=== PATIENT | female | born 1985 | race Caucasian/White ===

== ENCOUNTER 2017-11-16 20:03 | Emergency (ER) | payer SELFPAY ==
[~2017-11-16] VITALS: Ht 167.6 cm; Wt 62.3 kg
[2017-11-16 20:07] VITALS: BP 110/59; PULSE 89; RESP 16; TEMP 98; O2SAT 100
--- NOTE | 2017-11-16 20:36 | PD ---
HPI Chief Complaint: Cold / Flu Symptoms Time Seen by Provider: 20:28 Travel History International Travel<30 days: No Contact w/Intl Traveler<30days: No Traveled to known affect area: No History of Present Illness HPI 32-year-old female here for evaluation of subjective fevers, URI symptoms, sinus pressure, bilateral ear pain, and throat pain. Symptoms started yesterday. The patient has not actually checked her temperature at home, however feels as though she may have a fever. She took some [id number] cold and flu medicine without relief of symptoms. She took one ibuprofen about 7 hours ago. She smokes about 5 cigarettes a day. She denies illicit drug use. Sinus pressure is mainly frontal and is moderate. She did have a productive cough this afternoon, however she did not look at the sputum. [facility] Past Medical History ?: Not Social History Alcohol Use: No Tobacco Use: Yes Substance Use: No Allergies-Medications (Allergen,Severity, Reaction): Coded Allergies: No Known Allergies (Unverified , 11/16/17) Reported Meds & Prescriptions Reported Meds & Active Scripts Active No Active Prescriptions or Reported Medications Review of Systems Except as stated in HPI: all other systems reviewed are Neg Physical Exam Narrative GENERAL: Well-developed, well-nourished, comfortable, no apparent distress. SKIN: Focused skin assessment warm/dry. No rash. HEAD: Atraumatic. Normocephalic. EYES: Pupils equal and round. No scleral icterus. No injection or drainage. ENT: No nasal bleeding or discharge. Mucous membranes pink and moist. Pharynx with moderate erythema without exudates. Uvula is midline. Normal phonation. No drooling or stridor. Bilateral tympanic membranes and external auditory canals are normal. Moderate frontal and maxillary sinus tenderness. NECK: Trachea midline. No JVD. No nuchal rigidity. CARDIOVASCULAR: Regular rate and rhythm. RESPIRATORY: No accessory muscle use. Clear to auscultation. Breath sounds equal bilaterally. MUSCULOSKELETAL: No obvious deformities. No clubbing. No cyanosis. No edema. NEUROLOGICAL: Awake and alert. No obvious cranial nerve deficits. Motor grossly within normal limits. Normal speech. PSYCHIATRIC: Appropriate mood and affect; insight and judgment normal. Data Data Last Documented VS Vital Signs Date Time Temp Pulse Resp B/P (MAP) Pulse Ox O2 Delivery O2 Flow Rate FiO2 11/16/17 20:07 98.0 89 16 110/59 (76) 100 Orders Orders Influenzae A/B Antigen (11/16/17 20:33) Group A Rapid Strep Screen (11/16/17 20:33) Ibuprofen (Motrin) (11/16/17 20:45) Strep Culture (Group A) (11/16/17 20:45) MDM Medical Decision Making Medical Screen Exam Complete: Yes Emergency Medical Condition: Yes Differential Diagnosis URI, viral illness, influenza, sinusitis, strep pharyngitis, meningitis/ encephalitis unlikely Narrative Course Vital signs reviewed and are within normal limits. Influenza is negative. Group A strep is negative. Patient has URI type symptoms as well as symptoms of sinusitis. She smokes about 5 cigarettes daily. She was counseled on smoking cessation. Her lungs are clear and equal bilaterally. There is no nuchal rigidity on exam. Plan at this time is to start her on amoxicillin. I will also give her a perception for Robitussin with codeine for her cough, and the patient was advised not to drive, drink alcohol, or operate heavy machinery while on this medication. Patient was counseled on smoking cessation. She will be given information to the [facility] to follow-up with this week. She was advised on when to return to the emergency department. She verbalizes understanding and agreement with plan. Diagnosis Primary Impression: Sinusitis Qualified Codes: J01.00 - Acute maxillary sinusitis, unspecified Additional Impression: URI (upper respiratory infection) Qualified Codes: J06.9 - Acute upper respiratory infection, unspecified Referrals: [facility] 3 days Primary Care Physician 3 days Additional Instructions: Follow-up with a primary care physician this week. Stay hydrated with plenty of fluids. Take Tylenol/ibuprofen for pain/fever. Return to the emergency department for worsening symptoms or any other concerns. Scripts Guaifenesin-Codeine Liq (Guaifenesin AC Liq) 100-10 Mg/5 Ml Syrp 10 ML PO Q6H Y for COUGH, #1 BOTTLE 0 Refills Prov: Raman Arellano MD 11/16/17 Amoxicillin (Amoxicillin) 875 Mg Tab 875 MG PO BID for Infection for 7 Days, #14 TAB 0 Refills Prov: Raman Arellano MD 11/16/17 Disposition: 01 DISCHARGE HOME Condition: Stable Raman Arellano MD Nov 16, 2017 20:36
[2017-11-16] MEDS ORDERED: IBUPROFEN 600 MG TAB PO ONE (20:45)
[2017-11-16] MEDS ORDERED: AMOX875T PO (21:10)
[2017-11-16] MEDS ORDERED: GUAISYP4 PO (21:10)
[2017-11-16] MEDS ORDERED: AMOXICILLIN 875 MG TAB PO ONE (21:15)
== END 2017-11-16 21:22 | disposition home or self-care (01) ==
LOC: PHEFT 20:03
DX: J32.9 Chronic sinusitis, unspecified (principal); J06.9 Acute upper respiratory infection, unspecified; F17.210 Nicotine dependence, cigarettes, uncomplicated
CPT/HCPCS: 87081; 87804; 87880; 99283